=== PATIENT | female | born 1935 ===

== ENCOUNTER 2022-09-19 08:07 | Outpatient (CLI) | payer OTHER | END 2022-09-19 08:15 | disposition home or self-care (01) | LOC: TOM 08:07 | PROVIDERS: ATTEND Internal Medicine Gastroenterology | DX: R19.5 Other fecal abnormalities (principal); D62 Acute posthemorrhagic anemia; K56.50 Intestinal adhesions [bands], unspecified as to partial versus complete obstruction ==